=== PATIENT | male | born 1945 | race Caucasian/White ===

== ENCOUNTER 2017-01-02 05:23 | Day surgery (SDC) | payer BC ==
--- NOTE | ~2017-01-02 | EGD ---
EGD REPORT [facility] [address] [place] [address] NAME: LEE LUGO : [birth year] STATUS : [facility]#: [id number] AGE: 71 ADM/REG DATE : 01/02/17 MR#: [id number] REPORT SERV DATE: 01/09/17 DICTATED BY: DATE: REPORT STATUS : Draft [facility]: [facility] DATE: 01/09/17 [facility] Patient Name: Lee Lugo Date of : 1945 Attending MD: MILE ALMANZA MD Procedure Date No Time: 01/02/2017 Procedure: Colonoscopy Indications: High risk colon cancer surveillance: Personal history of non-advanced adenoma Referring MD: Jaime Moreno Medicines: Monitored Anesthesia Care Complications: No immediate complications. Procedure: Pre-Anesthesia Assessment: - ASA Grade Assessment: II - A patient with mild systemic disease. After I obtained informed consent, the scope was passed under direct vision. Throughout the procedure, the patient's blood pressure, pulse, and oxygen saturations were monitored continuously. The PCF [id number] was introduced through the anus and advanced to the cecum, identified by appendiceal orifice and ileocecal valve. The colonoscopy was performed without difficulty. The patient tolerated the procedure well. The quality of the bowel preparation was excellent. Findings: The perianal exam was abnormal. Findings include hemorrhoids and skin tags. Four sessile polyps were found in the ascending colon. The polyps were 4 to 12 mm in size. The 12 mm polyp appears to be an SSA and was removed piecemeal. These polyps were removed with a cold snare. Resection and retrieval were complete. Four flat polyps were found at the splenic flexure. The polyps were diminutive in size. These polyps were removed with a cold biopsy forceps. Resection and retrieval were complete. No other significant abnormalities were identified in a careful examination of the remainder of the colon. There is no endoscopic evidence of erythema, mass or ulcerations in the entire colon. Biopsies were taken with a cold forceps from the ascending colon and transverse colon for evaluation of microscopic colitis. An incidental, single angioectasia without bleeding was found in the distal ascending colon. Internal hemorrhoids were found during retroflexion and were Grade I (internal hemorrhoids that do not prolapse). EGD REPORT [place] [id number] [facility] [place]. [address] NAME: LEE LUGO : [birth year] STATUS : [facility] PAT#: [id number] AGE: 71 ADM/REG DATE : 01/02/17 MR#: [id number] REPORT SERV DATE: 01/09/17 DICTATED BY: DATE: REPORT STATUS : Draft TRANSCRIBED BY: [employer] DATE: 01/09/17 Anal papilla(e) were hypertrophied. No additional abnormalities were found on retroflexion. Impression: - Hemorrhoids and perianal skin tags found on perianal exam. - Four 4 to 12 mm polyps in the ascending colon. Resected and retrieved. - Four diminutive polyps at the splenic flexure. Resected and retrieved. - A single non-bleeding colonic angioectasia. - Internal hemorrhoids. - Anal papilla(e) were hypertrophied. Recommendation: - Patient has a contact number available for emergencies. The signs and symptoms of potential delayed complications were discussed with the patient. Return to normal activities tomorrow. Written discharge instructions were provided to the patient. - High fiber diet. - Discharge patient to home. - Continue present medications. - Await pathology results. - Repeat colonoscopy in 3 years for surveillance based on pathology results. - Refer to a colo-rectal surgeon at appointment to be scheduled to evaluate for hemorrhoidectomy. - Anusol (pramoxine) suppository: Insert rectally daily for 5 days. - 1/2 dose Miralax daily along with fiber supplement Procedure Code(s): --- Professional --- 15132, Colonoscopy, flexible, proximal to splenic flexure; with removal of tumor(s), polyp(s), or other lesion(s) by snare technique 08735, 59, Colonoscopy, flexible, proximal to splenic flexure; with biopsy, single or multiple Diagnosis Code(s): --- Professional --- K64.4, Residual hemorrhoidal skin tags D12.3, Benign neoplasm of transverse colon D12.2, Benign neoplasm of ascending colon K55.20, Angiodysplasia of colon without hemorrhage K64.0, First degree hemorrhoids K62.89, Other specified diseases of anus and rectum Z86.010, Personal history of colonic polyps EGD REPORT [place] [id number] [id number] NAME: LEE LUGO : [birth year] STATUS : [facility] PAT#: [id number] AGE: 71 ADM/REG DATE : 01/02/17 MR#: [id number] REPORT SERV DATE: 01/09/17 DICTATED BY: DATE: REPORT STATUS : Draft TRANSCRIBED BY: [employer] DATE: 01/09/17 CPT copyright 2013 [employer]. All rights reserved. The codes documented in this report are preliminary and upon utility mechanic supervisor review may be revised to meet current compliance requirements. MILE ALMANZA MD 01/09/2017 1:31 PM This report has been signed electronically. Number of Addenda: 0 Note Initiated On: 01/02/2017 7:00 AM Scope Withdrawal Time 0 hours 16 minutes 28 seconds [address] [id number]
[~2017-01-02 05:23] MED LIST: ADVIL PO; AVODART PO; AZOR PO; GLUCPH PO; HYDROCHLOROT25 MG PO; METHOC500B PO; NORCO1 TA2 PO
== END 2017-01-02 23:59 | disposition home or self-care (01) ==
LOC: DMU 05:23
PROVIDERS: Internal Medicine Gastroenterology
PROC: 0DBK8ZZ Excision of Ascending Colon, Via Natural or Artificial Opening Endoscopic (ICD-10-PCS; principal; 2017-01-02 07:00)
PROC: 0DBL8ZZ Excision of Transverse Colon, Via Natural or Artificial Opening Endoscopic (ICD-10-PCS; 2017-01-02 07:00)
DX: Z12.11 Encounter for screening for malignant neoplasm of colon (principal); I10 Essential (primary) hypertension; D12.2 Benign neoplasm of ascending colon; D12.3 Benign neoplasm of transverse colon; K64.4 Residual hemorrhoidal skin tags; K55.20 Angiodysplasia of colon without hemorrhage; K64.0 First degree hemorrhoids; K62.89 Other specified diseases of anus and rectum; Z86.010 Personal history of colon polyps; Z79.899 Other long term (current) drug therapy; Z79.891 Long term (current) use of opiate analgesic; Z79.84 Long term (current) use of oral hypoglycemic drugs
CPT/HCPCS: 82962; 88305